=== PATIENT | male | born 2000 | race Caucasian/White ===

== ENCOUNTER 2023-03-17 22:27 | Emergency (ER) | payer OTHER ==
[2023-03-17] MEDS ORDERED: DIPH,PERTUS(ACELL)TETVAC-LF 0.5 ML VIAL IM ONE (22:35)
[2023-03-17] MEDS ORDERED: SODIUM CHLORIDE 0.9% 1,000 ML IV STA (22:38)
[2023-03-17] MEDS ORDERED: ONDANSETRON 4 MG/2 ML VIAL IVP STA (22:38)
[2023-03-17] MEDS ORDERED: HYDROmorphone 1 MG/ML 1 ML SYRINGE IVP STA ×2 (22:38→23:05)
[2023-03-17 22:41] LABS: Glucose,Whole Blood 107 mg/dL (70-110)
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
[2023-03-17] MEDS ORDERED: MIDAZOLAM 1 MG/ML 5 ML VIAL IV STA (22:48)
[2023-03-17 23:03] LABS: Basophils # (A) 0.1 k/uL (0-0.2); Basophils % (A) 0 %; Eosinophils # (A) 0.5 k/uL (0-0.7); Eosinophils % (A) 2 %; HCT 46.9 % (39.0-53.0); HGB 15.8 gm/dL (13.0-17.5); Lymphocytes # (A) 4.3 k/uL (1.0-4.8); Lymphocytes % (A) 22 %; MCH 32.1 pg (25.0-35.0); MCHC 33.8 g/dL (31.0-37.0); MCV 94.9 fL (80.0-100.0); Mean Platelet Volume 6.9; Monocytes # (A) 0.5 k/uL (0-1.0); Monocytes % (A) 3 %; Neutrophils # (A) 13.9 k/uL (1.3-7.7); Neutrophils % (A) 71 %; Platelet Count 288 k/uL (150-450); RBC 4.94 m/uL (4.30-5.90); RDW 12.3 % (11.5-15.5); WBC 19.5 k/uL (3.8-10.6)
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
[2023-03-17 23:06] LABS: ALT 73 U/L (4-49); AST 131 U/L (17-59); African American GFR (CKD) >90 (>60 ml/min/1.73 sqM); Albumin 4.6 g/dL (3.5-5.0); Alkaline Phosphatase 60 U/L (38-126); Anion Gap 12 mmol/L; Blood Urea Nitrogen 12 mg/dL (9-20); Calcium 8.9 mg/dL (8.4-10.2); Carbon Dioxide 23 mmol/L (22-30); Chloride 107 mmol/L (98-107); Glucose 107 mg/dL (74-99); Non-African American GFR(CKD) >90 (>60 ml/min/1.73 sqM); Potassium 4.1 mmol/L (3.5-5.1); Sodium 142 mmol/L (137-145); Total Bilirubin 0.5 mg/dL (0.2-1.3); Total Protein 7.7 g/dL (6.3-8.2)
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
[2023-03-17 23:09] LABS: Alcohol 209 mg/dL
[2023-03-17] MEDS: HYDROmorphone 1 MG/ML 1 ML SYRINGE IVP STA (23:12)
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
[2023-03-17 23:28] LABS: INR 1.1 (<1.2); Partial Thromboplastin Time 20.1 sec (22.0-30.0); Prothrombin Time 11.7 sec (9.0-12.0)
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
--- NOTE | 2023-03-18 00:04 | XR ---
EXAMINATION TYPE: XR elbow limited LT DATE OF EXAM: 03/17/2023 COMPARISON: Earlier exam HISTORY: Recheck reduction TECHNIQUE: Left elbow is examined in 2 projections. FINDINGS: There is incomplete reduction of a radial head dislocation from the humerus. There is mild improved alignment of the displaced and angulated ulnar fracture. This remains a bayone t deformity. IMPRESSION: 1. Dislocation of the humeral head from the humerus. 2. Oblique fracture proximal diaphyseal ulna with bayonet deformity and slight angulation.
[2023-03-18 00:34] VITALS: BP 145/74; PULSE 109; RESP 18; TEMP 97.4
[2023-03-18] MEDS ORDERED: HYDROmorphone 1 MG/ML 1 ML SYRINGE IVP STA (00:40)
== END 2023-03-18 00:15 | disposition other institution (70) ==
LOC: EC 22:27
DX: S22.43XA Multiple fractures of ribs, bilateral, initial encounter for closed fracture (principal); S27.0XXA Traumatic pneumothorax, initial encounter; S53.105A Unspecified dislocation of left ulnohumeral joint, initial encounter; S26.91XA Contusion of heart, unspecified with or without hemopericardium, initial encounter; Z23 Encounter for immunization; V86.35XA Unspecified occupant of 3- or 4- wheeled all-terrain vehicle (ATV) injured in traffic accident, initial encounter
CPT/HCPCS: 36415; 93005; 86900; 86901; 80053; 84484; 85025; 85610; 85730; 86850; 80320; 72170; 73070; 71045; 72125; 70450; 71260; 74177; 90715; 99291; 96365; 90471; 96375 ×3; 96376 ×2; 96361; 24640; 25565; J0690; J2405; J2250; J1170 ×2; Q9967